=== PATIENT | female | born 1945 | race Caucasian/White ===

== ENCOUNTER 2019-11-28 04:15 | Inpatient (IN) ==
--- NOTE | 2019-11-28 04:33 | ERNOTE ---
Lower Extremity HPI - General Lower Extremities Pain: hip: right - Fracture Time Seen by Provider: 11/28/19 04:21 Source: patient, old records Exam Limitations: no limitations - Immun/Allergies/Home Medications Immunizations: IMMUNIZATION HX Immunizations Up to Date Yes Allergies/Adverse Reactions: Allergies Allergy/AdvReac Type Severity Reaction Status Date / Time Sulfa (Sulfonamide Allergy Verified 11/28/19 04:21 Antibiotics) Home Medications: HOME MEDICATIONS Furosemide [Lasix] 40 mg PO BID 11/28/19 [Last Taken Unknown] Glipizide Xl 1 tab PO DAILY 11/28/19 [Last Taken Unknown] Potassium Chloride [Klor-Con] 20 meq PO DAILY 11/28/19 [Last Taken Unknown] metFORMIN HCL 1 tab PO DAILY 11/28/19 [Last Taken Unknown] - History of Present Illness Narrative: Patient transferred here from [facility] accepted by Dr. Peters due to right intertrochanteric hip fracture. Patient is comfortable at this time she states it only really hurts when she is moved. Patient was given IV Toradol at [facility] just prior to discharge. Occurred: this evening Location of Incident: home Method of Injury: Reports: fell Reason for Fall: Reports: tripped Loss of Consciousness: Reports: no loss of consciousness Modifying Factors - (Improves): Reports: immobilization Modifying Factors - (Worsens): Reports: movement Associated Symptoms: Reports: unable to bear weight Other Injuries: Reports: none Review of Systems - Review of Systems Constitutional: Absent: recent illness, fever, chills Respiratory: Absent: shortness of breath, cough Cardiology: Absent: chest pain, palpitations Gastrointestinal/Abdominal: Absent: nausea, vomiting Genitourinary: Absent: frequency, dysuria Musculoskeletal: Present: See HPI Skin: Absent: rash, change in color Neurological: Absent: headache, dizziness/light-headedness Endocrine: Absent: excessive sweating, flushing Hematologic/Lymphatic: Absent: easy bruising, easy bleeding Psych: Absent: anxiety, depressed Medical History (Last Reviewed 11/28/19 @ 06:10 by Denver Frias DO) Diabetes Edema of both legs History of irregular heartbeat Surgical History: Surgical History (Last Reviewed 11/28/19 @ 06:10 by Denver Frias DO) History of bilateral knee replacement Social History: (Last Reviewed 11/28/19 @ 06:10 by MONICA Schwartz Tobacco: Smoking Status: Never smoker Alcohol: alcohol intake: former Substance Use: substance use type: does not use Physical Exam - Physical Exam General Appearance: Present: wd/wn, alert, no apparent distress Head Exam: Present: normal inspection, no evidence of injury Ears, Nose, Throat: Present: normal ENT inspection Neck: Present: normal inspection, nontender, supple Respiratory: Present: no respiratory distress, no accessory muscle use, lungs clear Cardiovascular/Chest: Present: no murmur, irregularly irregular Peripheral Pulses: N=norm/S=strong/W=weak/B=bound/A=absent: Dorsalis-pedis (R): Normal, Dorsalis-pedis (L): Normal Gastrointestinal/Abdominal: Present: normal bowel sounds, nontender, nondistended, soft Extremity Exam: Present: normal except - - Tenderness right hip., extremity edema - +1 bilaterally Neurological Exam: Present: alert, oriented - In general but does get a little confused on details concerning her medication and and other recent medical treatment., normal mood/affect Skin Exam: Present: normal color, warm/dry Lymphatic Exam: Present: no adenopathy Progress - Results and Orders Patient's Lab Results:: I have reviewed the patient's lab results. Results and Orders: Laboratory Tests 11/28/19 11/28/19 04:35 04:35 WBC 16.3 H Hgb 13.1 Hct 36.7 L Plt Count 200 Neutrophils % 84.2 H Sodium 122 L Potassium 2.2 L* Chloride 84 L BUN 42 H Creatinine 1.52 H Random Glucose 170 H - Vital Signs Patient's Vital Signs:: I have reviewed the patient's vital signs. Vital Signs: Vital Signs 11/28/19 04:17 Temperature 36.4 C Pulse Rate 68 Respiratory Rate 17 Blood Pressure 121/64 O2 Sat by Pulse Oximetry 99 - EKG EKG #1 EKG: atrial fibrillation, RBBB EKG read: Interp. by me - X-Ray X-Ray #1 X-Ray: hip Interpretation: Reviewed by me X-ray Comments: I reviewed hip x-rays from [facility]. X-ray showed acute comminuted and displaced right intertrochanteric fracture with shortening. - Progress/Reassessment Chief Complaint: Hip Pain/Injury Progress:: Improved Progress Note-Subjective: 11/28/19 05:[address] Peters about the lab abnormalities and he requested the patient be admitted to medicine and consult him. 11/28/19 06:[address] Ashraf, she agreed with admit and we agreed with normal saline with potassium IV to begin to straighten out her electrolyte abnormalities. Departure Clinical Impression: Hyponatremia, Hypokalemia Intertrochanteric fracture of right hip Qualifiers: Encounter type: initial encounter Fracture type: closed Fracture alignment: displaced Qualified Code(s): S72.141A - Displaced intertrochanteric fracture of right femur, initial encounter for closed fracture - Departure Disposition: Still a patient Condition: Good
[2019-11-28 04:37] LABS: Hematocrit 36.7 % (37.0-47.0); Hemoglobin 13.1 gm/dL (12.5-16.0); Mean Corpuscular Hemoglobin 30.3 pg (27-31); Mean Corpuscular Hgb Conc 35.7 g/dl (32-36); Mean Platelet Volume 9.4 fl (8-12.5); Neutrophil # 13.8 K/mm3 (1.3-6.0); Neutrophil % 84.2 % (42-75.0); Platelet Count 200 K/mm3 (150-450); Red Blood Count 4.32 M/mm3 (4.2-5.4); Red Cell Distribution Width 12.7 % (11.5-14.0); White Blood Count 16.3 K/mm3 (4.0-10.5)
[2019-11-28 04:45] LABS: Anion Gap 7.8 mmol/L (6.8-13.8); BUN/Creatinine Ratio 27.6 (9.0-21.6); Calcium * 9.1 mg/dL (7.9-10.9); Carbon Dioxide 32.4 mmol/L (24-32.6); Estimated Creat Clear 32.9
[2019-11-28 04:54] LABS: Potassium 2.2 mmol/L (3.4-4.6)
[2019-11-28] MEDS ORDERED: POTASSIUM CHLORIDE 40 MEQ in NORMAL SALINE 1,000 ML IV SCH (05:15)
[2019-11-28] MEDS ORDERED: ONDANSETRON HCL/PF 2 MG/ML VIAL IV PRN (10:02)
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
[2019-11-28] MEDS: POTASSIUM CHLORIDE 40 MEQ in NORMAL SALINE 1,000 ML IV SCH ×2 (10:48→20:55)
[2019-11-28] MEDS: FUROSEMIDE 40 MG TABLET PO SCH ×2 (10:51→20:54)
--- NOTE | 2019-11-28 11:36 | CONS ---
- Reason for consultation (1) Intertrochanteric fracture of right hip Date of Service: 11/28/19 HPI - General Date of Service: 11/28/19 Narrative: 74-year-old female with right hip intertrochanteric femur fracture. Patient fell last night was brought to the ER found to have this fracture. She notes her pain is minimal at rest worse with movement. She rates it a 4/10 with significant movement. However while resting she notes she has no significant pain. She reports no other acute events. She does wish to have her brother Bill notified of proceedings. Source: patient - History of Present Illness Allergies/Adverse Reactions: Allergies Sulfa (Sulfonamide Antibiotics) Allergy (Verified 11/28/19 10:02) Home Medications: Home Medications Medication Instructions Recorded Last Taken Furosemide [Lasix] 40 mg PO BID 11/28/19 Unknown Glipizide Xl 1 tab PO DAILY 11/28/19 Unknown Potassium Chloride [Klor-Con] 20 meq PO DAILY 11/28/19 Unknown metFORMIN HCL [Glucophage Xr] 750 mg PO DAILY 11/28/19 Unknown Medications - Medications Current Medications: Current Medications Furosemide (Lasix) 40 mg PO BID [facility] Stop: 12/28/19 10:16 Last Admin: 11/28/19 10:51 Dose: 40 mg Documented by: Potassium Chloride 40 meq/ (Sodium Chloride) 1,020 mls @ 250 mls/hr IV .[id number] [facility] Stop: 12/28/19 05:16 Last Infusion: 11/28/19 09:52 Dose: Infused Documented by: Potassium Chloride 40 meq/ (Sodium Chloride) 1,020 mls @ 100 mls/hr IV .[id number] [facility] Stop: 12/28/19 10:01 Last Admin: 11/28/19 10:48 Dose: 100 mls/hr Documented by: Physical Examination - Exam Vital Signs: Vital Signs - Last Taken Temp 37.5 C 11/28/19 11:18 Pulse 67 11/28/19 11:18 Resp 12 11/28/19 11:18 BP 115/63 11/28/19 11:18 Pulse Ox 99 11/28/19 11:18 O2 Oxygen Delivery Method Room Air Constitutional: Present: Alert, Cooperative, No distress Respiratory: Present: no respiratory distress Extremity: Present: other - RLE--> sensation intact light touch, distal capillary refill brisk, 5/5 plantarflexion/dorsiflexion ankle, diffuse t enderness about right hip, no obvious wounds or deformity Appearance: Present: appropriate appearance Eye contact: Present: cooperative Thoughts: Present: normal thought pattern - Results and Findings: Lab/Microbiology results last 24 hrs: Abnormal/Pending Laboratory Last 24 HRS 11/28/19 11/28/19 04:35 04:35 WBC 16.3 H Hct 36.7 L Immature Gran % (Auto) 0.60 H Immature Gran # (Auto) 0.09 H Neutrophils % 84.2 H Lymphocytes % 8.5 L Neutrophils # 13.8 H Lymphocytes # 1.39 L Sodium 122 L Plasma Sodium 123 L Potassium 2.2 L* Chloride 84 L BUN 42 H Creatinine 1.52 H Est GFR (Non-Af Amer) 35 L BUN/Creatinine Ratio 27.6 H Random Glucose 170 H - Assessments/Findings (1) Intertrochanteric fracture of right hip Problem: Acute Qualifiers: Encounter type: initial encounter Fracture type: closed Fracture alignment: displaced Qualified Code(s): S72.141A - Displaced intertrochanteric fracture of right femur, initial encounter for closed fracture Plan - Plan Plan: -74 y/o female presented to the ER after a fall with a right intertrochanteric femur fracture. Discussed with patient conservative or surgical intervention today as well as with patient's POA answered all her questions discussed risk versus benefits including but not limited to infection, bleeding, malunion versus nonunion fracture healing, implant failure, continued pain, cardiac and stroke risk, inherent risk of surgery. Patient agreed to proceed with surgical intervention. Due to patient's electrolyte imbalances and discussion with medicine will continue to stabilize patient prior to surgical intervention most likely on 11/29/2019. Consent was obtained and all questions were answered without complication. We will continue with management per medicine team for chronic conditions.
[2019-11-28] MEDS: DILTIAZEM HCL 60 MG TABLET PO SCH ×2 (12:36→18:30)
[2019-11-28] MEDS ORDERED: glipiZIDE 5 MG TAB.SR.24H PO SCH (14:00)
[2019-11-28] MEDS: BETHANECHOL 5 MG PO SCH ×2 (14:12→18:31)
[2019-11-28] MEDS: metFORMIN HCL 750 MG TAB.SR.24H PO SCH (15:02)
[2019-11-28] MEDS: glipiZIDE 5 MG TABLET PO SCH (15:02)
[2019-11-28 17:18] LABS: Albumin * 3.2 gm/dl (3.4-5.0); Anion Gap 7.2 mmol/L (6.8-13.8); BUN/Creatinine Ratio 27.6 (9.0-21.6); Bilirubin, Total 2.8 mg/dL (0.0-1.1); Ca. Corrected For Albumin 8.9 mg/dL (8.4-10.2); Calcium * 8.6 mg/dL (7.9-10.9); Carbon Dioxide 33.5 mmol/L (24-32.6); Potassium 2.7 mmol/L (3.4-4.6); Total Protein 6.3 gm/dL (6.2-8.2)
[2019-11-28] MEDS ORDERED: POTASSIUM CHLORIDE 20 MEQ TABLET.SA PO ONE (18:01)
[2019-11-28] MEDS: PANTOPRAZOLE SODIUM 40 MG TABLET.EC PO SCH (20:54)
[2019-11-29] MEDS: ACETAMINOPHEN 500 MG TABLET PO PRN ×2 (00:42→21:31)
[2019-11-29] MEDS: DILTIAZEM HCL 60 MG TABLET PO SCH ×4 (00:42→17:13)
[2019-11-29] MEDS ORDERED: RINGER'S SOLUTION,LACTATED 1,000 ML IV PRN ×2 (06:00→11:29)
[2019-11-29] MEDS ORDERED: ceFAZolin SODIUM 1 GM VIAL IV PRN (06:00)
[2019-11-29 06:35] LABS: BUN/Creatinine Ratio 24.6 (9.0-21.6); Potassium 3.4 mmol/L (3.4-4.6)
[2019-11-29 06:36] LABS: Albumin * 3.1 gm/dl (3.4-5.0); Bilirubin, Total 2.3 mg/dL (0.0-1.1); Ca. Corrected For Albumin 9.1 mg/dL (8.4-10.2); Calcium * 8.7 mg/dL (7.9-10.9); Total Protein 6.2 gm/dL (6.2-8.2)
[2019-11-29 06:41] LABS: Anion Gap 8.7 mmol/L (6.8-13.8); Carbon Dioxide 30.7 mmol/L (24-32.6)
[2019-11-29] MEDS: POTASSIUM CHLORIDE 40 MEQ in NORMAL SALINE 1,000 ML IV SCH (06:54)
--- NOTE | 2019-11-29 07:12 | ANES ---
Anesthesia Pre Procedure Eval Vitals/Labs: Last Vital Signs Temp 36.8 C 11/29/19 02:00 Pulse 70 11/29/19 05:18 Resp 18 11/29/19 02:00 BP 120/62 11/29/19 05:18 Pulse Ox 97 11/29/19 02:00 HOME MEDICATIONS chlorthalidone 25 mg tablet 12.5 mg PO DAILY #15 tab 10/31/19 [Last Taken Unknown] Bethanechol Chloride 5 mg PO TID 11/28/19 [Last Taken Unknown] Chlorthalidone [Hygroton] 12.5 mg PO DAILY 11/28/19 [Last Taken Unknown] Diltiazem HCl [Cardizem] 60 mg PO Q6H 11/28/19 [Last Taken Unknown] Ergocalciferol (Vitamin D2) [Vitamin D2] 50,000 unit PO MOWEFR 11/28/19 [Last Taken Unknown] Folic Acid 1 mg PO DAILY 11/28/19 [Last Taken Unknown] Furosemide [Lasix] 20 mg PO DAILY 11/28/19 [Last Taken Unknown] Furosemide [Lasix] 40 mg PO BID 11/28/19 [Last Taken Unknown] Lisinopril/Hydrochlorothiazide [Lisinopril-Hctz 20-25 mg Tab] 1 ea PO DAILY 11/28/19 [Last Taken Unknown] Meloxicam [Mobic] 15 mg PO DAILY 11/28/19 [Last Taken Unknown] Metoprolol Succinate [Toprol Xl] 50 mg PO DAILY 11/28/19 [Last Taken Unknown] Potassium Chloride [Klor-Con] 20 meq PO DAILY 11/28/19 [Last Taken Unknown] Rosuvastatin Calcium 10 mg PO DAILY 11/28/19 [Last Taken Unknown] glipiZIDE [Glipizide] 5 mg PO DAILY 11/28/19 [Last Taken Unknown] metFORMIN HCL [Glucophage Xr] 750 mg PO DAILY 11/28/19 [Last Taken Unknown] Allergies/Adverse Reactions: Allergies Allergy/AdvReac Type Severity Reaction Status Date / Time Sulfa (Sulfonamide Allergy Verified 11/28/19 12:46 Antibiotics) - Planned Procedure Planned Procedure: R HIP FX, HYPONATREMIA,HYPOKALEMIA Medication List Reviewed:: Yes Allergies Verified: Yes Medical History (This Medical Record has been edited. Action required.) CHF (congestive heart failure) Diabetes Edema of both legs History of irregular heartbeat Hypertension Surgical History (This Medical Record has been edited. Action required.) History of bilateral knee replacement Family History (This Medical Record has been edited. Action required.) Mother A-fib Father Leukemia Emphysema lung Lung cancer - Family Anesthesia History Family History:: no untoward family reactions to anesthesia, no familial bleeding tendencies, no family history of clotting disorders, no family history of premature - Airway/Neck/Teeth Denture Type: Full upper Neck Exam: full range of motion Mallampatti Score: 2 Thyromental (T-M) distance: > 6 cm Mandibulo Hyoid distance: > 3 cm - Respiratory Respiratory Physical: wheezing - inspiratory Smoking Status: Never smoker Sleep Apnea currently treated: No Sleep Apnea by current assessment: No - Cardiovascular Cardiac History: arrhythmia, CHF, hypertension Tolerate Activity: Fair Heart Sounds: S1 & S2, Regular - Gastrointestinal NPO since: 2400 - Anesthesia Assessment and Plan ASA Class: PS, III Anesthesia Type Plan: Spinal
[2019-11-29] MEDS ORDERED: ceFAZolin SODIUM 1 GM VIAL ONE (08:09)
[2019-11-29] MEDS: METOPROLOL SUCCINATE 50 MG TABLET.SA PO SCH (09:37)
--- NOTE | 2019-11-29 10:00 | PN ---
Subjective - Date and Time Seen Date: 11/29/19 Time: 09:53 Subjective Narrative: I feel comfortable for now Objective Objective Narrative: 74-year-old female admitted for a right intertrochanteric femoral neck fracture that resulted from a fall that occurred in the community several days ago was evaluated at bedside and was found to be afebrile and in no acute distress. Patient had not been medically cleared previously due to significant electrolyte imbalance specifically hypokalemia and hyponatremia. Disorder her electrolytes are most likely secondary to daily oral diuretics the patient takes to treat chronic and recurrent edema in her lower extremities. However after treating the patient with sodium and potassium replacements, this morning labs demonstrate resolution of the hypokalemia and hyponatremia. The patient maintained stable vitals and has had no fever while in our care. Her hemoglobin levels are adequate, therefore I am clearing her for surgery to repair her hip fracture. - Review of Systems Generalized/Overall Review: Reports: No Symptoms Reported EENTM: Reports: No Symptoms Reported Respiratory: Reports: No Symptoms Reported Cardiac: Reports: No Symptoms Reported Abdominal: Reports: No Symptoms Reported Genitourinary Symptoms: Reports: No Symptoms Reported Musculoskeletal Complaints: Reports: Joint Pain - Right hip pain Neurological: Reports: No Symptoms Reported Skin: Reports: No Symptoms Reported Endocrine: Reports: No Symptoms Reported - Vitals Vitals: Last Vital Signs Temp 37.0 C 11/29/19 07:27 Pulse 60 11/29/19 09:37 Resp 20 11/29/19 07:27 BP 124/65 11/29/19 09:37 Pulse Ox 97 11/29/19 07:27 - Abnormal Lab Findings Abnormal Lab Findings: Abnormal Lab Results 11/28/19 11/29/19 Range/Units 15:40 06:10 Sodium 127 L 130 L (132-142) mmol/L Plasma Sodium 129 L (130-142) mmol/L Potassium 2.7 L D (3.4-4.6) mmol/L Chloride 89 L 94 L (97-106) mmol/L Carbon Dioxide 33.5 H (24-32.6) mmol/L BUN 35 H 29 H (3-23) mg/dL Est GFR (Non-Af Amer) 43 L D 47 L (60-130) mL/min BUN/Creatinine Ratio 27.6 H 24.6 H (9.0-21.6) Random Glucose 239 H D (70-110) mg/dL Total Bilirubin 2.8 H 2.3 H (0.0-1.1) mg/dL ALT 17 L 14 L (19-67) U/L Albumin 3.2 L 3.1 L (3.4-5.0) gm/dl - Exam Constitutional: Present: Alert, Oriented x3, Cooperative, Well developed, Well nourished, No distress, Elderly ENT Exam: Present: normal ENT inspection, hard of hearing Neck: Present: non-tender, full range of motion, supple, normal inspection, trachea midline Breasts: Present: Exam deferred Respiratory: Present: chest non-tender, lungs clear, normal breath sounds, no respiratory distress, no accessory muscle use Cardiovascular/Chest: Present: normal peripheral pulses, regular rate, rhythm, no chest tenderness, no gallop, no JVD, no murmur, no rub Abdomen: Present: Normal bowel sounds, soft, nontender, nondistended, no rebound tenderness, no hepatospenomegaly, no masses /Rectal: Present: Exam deferred Extremity: Present: no calf tenderness, lower extremity edema, leg pain, other - Externally rotated and shortened right lower extremity Skin Exam: Present: normal color, warm/dry, no cyanosis Lymphatic: Present: no adenopathy Neurologic: Present: 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 - Problems/Diagnosis (1) Fall down embankment Problem: Acute (2) Intertrochanteric fracture of right hip Problem: Acute Qualifiers: Encounter type: initial encounter Fracture type: closed Fracture alignment: displaced Qualified Code(s): S72.141A - Displaced intertrochanteric fracture of right femur, initial encounter for closed fracture (3) Hyponatremia Problem: Resolved (4) Hypokalemia Problem: Resolved (5) Diabetes 1.5, managed as type 2 Problem: Chronic (6) HTN (hypertension) Problem: Chronic
[2019-11-29] MEDS ORDERED: fentaNYL CITRATE/PF 50 MCG/ML AMPUL ONE (10:27)
[2019-11-29] MEDS ORDERED: ONDANSETRON HCL/PF 2 MG/ML VIAL ONE (10:27)
[2019-11-29] MEDS ORDERED: LIDOCAINE HCL 20 ML VIAL ONE (10:27)
[2019-11-29] MEDS ORDERED: PROPOFOL VIAL IV ONE (10:28)
[2019-11-29] MEDS ORDERED: MAG HYDROX/ALUMINUM HYD/SIMETH 30 ML UDC PO PRN (11:36)
[2019-11-29] MEDS ORDERED: MAGNESIUM HYDROXIDE 30 ML UDC PO PRN (11:36)
--- NOTE | 2019-11-29 11:36 | OR ---
Operative Report - Dictated Report Narrative: Date: 11/29/2019 Surgeon: Gordy Lincoln M.D. Management Assistant: Jose Frank PA-C (provided an essential set of skilled educated handset assisted with transfer, positioning, prepping, draping, placement of instruments, insertion of implants, irrigation, closure wounds, and placement of dressings all which could not be performed by the available surgical crew) Preoperative diagnosis: Right displaced intertrochanteric femur fracture Postoperative diagnosis: Right closed displaced intertrochanteric femur fracture Operations and procedures: 1. Closed reduction, cephalo-medullary fixation right intertrochanteric femur fracture 2. Intraoperative interpretation of radiographs Anesthesia: Spinal Specimens: None Estimated blood loss: 75 milliliters Retained implants: [employer] Trigen InterTAN 130 degree size 11.5 mm by 20 centimeter nail with 100 millimeter lag screw and 95 millimeter compression screw, with distal locking screw Complications: None Indications for procedure: Mrs. Rowe is a 74-year-old female who injured the right leg after ground-level fall. They were admitted to the hospital after being evaluated in the emergency department. Once the medical provider felt that they were stable for surgical treatment, the risks and benefits alternatives were discussed. The risks of , blood clots, bleeding, infection, nerve/tendon/blood vessel injury, malunion, nonunion, failure of implants, painful implants, arthrosis, and need for additional procedures were discussed. The extremity was marked and consent was obtained on the floor. Procedure: After marking the operative extremity on the floor, the patient was taken to the operating room. A timeout was performed. IV antibiotics consisting of Ancef were administered. A spinal anesthetic was induced by anesthesia, and the patient was then placed onto a fracture table with a well-padded perineal post. The nonoperative leg was placed in a well-padded traction boot in slight extension without any traction with an SCD on the leg. The operative leg was placed in a well-padded traction boot. Longitudinal traction, internal rotation, and flexion were utilized in order to reduce the fracture. Preliminary images were attained utilizing C-arm in both the AP and lateral views. This confirmed that we had obtained adequate visualization of the fracture as well as reduction. Next the hip was then prepped and draped in a standard sterile fashion. Next the guidewire was placed percutaneously proximal to the greater trochanter to duglas a starting point at the tip of the greater trochanter centered on the lateral view. This was passed down to the level below the lesser trochanter. A scalpel was utilized in order to dissect down to the greater trochanter in order to place the soft tissue protector down to bone. The entry drill was then placed down the proximal femur to the level of the lesser trochanter. The proper size nail was then selected and impacted into place. The outrigger was utilized in order to confirm the appropriate depth of the nail. Using the alignment device on the outrigger, an incision was made over the lateral femur. Sharp dissection was carried through the iliotibial band down to the proximal femur. The guidewire was placed into the femoral head in a center- center position on AP and lateral views. The tip-apex distance of less than 25 mm combined was obtained. Once we felt that we had placed a guidewire in the appropriate position, it was measured. Next the compression screw site was drilled through the lateral femoral cortex. This was then drilled down to the appropriate depth, again confirming that we are within the confines the bone. The derotational bar was then placed and the lag screw was drilled. The lag screw was then secured in place seating fully ensuring that we were within the confines of the bone. The compression screw was then inserted allowing for compression while releasing the traction on the leg. Using C-arm this was visualized to allow for compression across the fracture site. Once is felt that we had adequately stabilized the intertrochanteric fracture, the distal interlocking screw was placed in a dynamic position. It was confirmed to be the appropriate length and within the nail on both AP and lateral views. The nail was secured allowing for controlled compression and the outrigger was removed. The wounds were then thoroughly irrigated. Final images were obtained. The hip was placed through range of motion and showed no crepitance. The deep fascia was closed with 0 Vicryl, the subcutaneous tissue with 3-0 Vicryl, and the skin was closed with feng. Sterile dressings of Xeroform, 4 x 4, and tape were applied. All sponge, sharp, and instrument counts were correct prior to closing the wounds. The patient was then awoken and transferred to the postanesthesia care unit in stable condition.
[2019-11-29 11:54] LABS: Prothrombin Time (Patient) 10.7 Seconds (9.1-10.7)
[2019-11-29 11:56] LABS: INR 1.08 INR (0.92-1.08)
--- NOTE | 2019-11-29 11:58 | ANES ---
Post Anesthesia Assessment - Vital Signs Vitals: Last Vital Signs Temp 36.0 C 11/29/19 11:45 Pulse 66 11/29/19 11:55 Resp 20 11/29/19 11:55 BP 107/57 11/29/19 11:55 Pulse Ox 99 11/29/19 11:55 Airway Patency: Normal - Mental Status Level Of Consciousness: Drowsy - Pain Level Pain Score: 0 - N/V Assessment Nausea/Vomiting Presence: None Dehydration:: No
--- NOTE | 2019-11-29 11:58 | ANES ---
Post Anesthesia Discharge - Transfer of Care Transfer of Care handoff given to nurse: Yes - Discharge from PACU Discharge from PACU when meets criteria: Yes - Discharge to [facility] Discharge to [facility]-no complications/pt stable: Yes
[2019-11-29] MEDS: CHLORTHALIDONE 25 MG TABLET PO SCH (12:27)
[2019-11-29] MEDS: metFORMIN HCL 750 MG TAB.SR.24H PO SCH (12:27)
[2019-11-29] MEDS: ERGOCALCIFEROL 50000 UNIT TABLET PO SCH (12:28)
[2019-11-29] MEDS: glipiZIDE 5 MG TABLET PO SCH (12:28)
[2019-11-29] MEDS: FOLIC ACID 1 MG TABLET PO SCH (12:28)
[2019-11-29] MEDS: FUROSEMIDE 40 MG TABLET PO SCH ×2 (12:28→21:32)
[2019-11-29] MEDS: ROSUVASTATIN CALCIUM 10 MG TABLET PO SCH (12:28)
[2019-11-29] MEDS: PANTOPRAZOLE SODIUM 40 MG TABLET.EC PO SCH ×2 (12:28→21:32)
[2019-11-29] MEDS: BETHANECHOL 5 MG PO SCH ×3 (12:29→17:13)
[2019-11-29] MEDS: POTASSIUM CHLORIDE 20 MEQ TABLET.SA PO SCH (12:29)
[2019-11-29] MEDS ORDERED: NORMAL SALINE 1,000 ML IV ONE (14:45)
[2019-11-29] MEDS: ceFAZolin SODIUM 1 GM in DEXTROSE 5 % IN WATER 100 ML IV SCH ×4 (14:48→19:04)
[2019-11-29] MEDS: WARFARIN SODIUM 5 MG TABLET PO SCH (17:13)
[2019-11-29] MEDS: SENNOSIDES/DOCUSATE SODIUM 1 TAB TABLET PO SCH (21:31)
[2019-11-30] MEDS: DILTIAZEM HCL 60 MG TABLET PO SCH ×5 (00:08→23:58)
[2019-11-30] MEDS: ceFAZolin SODIUM 1 GM in DEXTROSE 5 % IN WATER 100 ML IV SCH ×2 (00:37)
[2019-11-30 07:01] LABS: Hematocrit 31.8 % (37.0-47.0); Hemoglobin 11.1 gm/dL (12.5-16.0); Mean Cell Volume 86.9 fl (78-100); Mean Corpuscular Hemoglobin 30.3 pg (27-31); Mean Corpuscular Hgb Conc 34.9 g/dl (32-36); Mean Platelet Volume 9.7 fl (8-12.5); Platelet Count 173 K/mm3 (150-450); Red Blood Count 3.66 M/mm3 (4.2-5.4); Red Cell Distribution Width 12.9 % (11.5-14.0); White Blood Count 13.6 K/mm3 (4.0-10.5)
[2019-11-30] MEDS: PANTOPRAZOLE SODIUM 40 MG TABLET.EC PO SCH ×2 (07:02→20:17)
[2019-11-30 07:04] LABS: Anion Gap 11.5 mmol/L (6.8-13.8); BUN/Creatinine Ratio 17.9 (9.0-21.6); Calcium * 8.8 mg/dL (7.9-10.9); Carbon Dioxide 32.3 mmol/L (24-32.6); Estimated Creat Clear 46.2
[2019-11-30 07:06] LABS: Potassium 2.8 mmol/L (3.4-4.6)
[2019-11-30] MEDS: metFORMIN HCL 750 MG TAB.SR.24H PO SCH (08:56)
[2019-11-30] MEDS: CHLORTHALIDONE 25 MG TABLET PO SCH (08:57)
[2019-11-30] MEDS: POTASSIUM CHLORIDE 20 MEQ TABLET.SA PO SCH (08:58)
[2019-11-30] MEDS: glipiZIDE 5 MG TABLET PO SCH (08:58)
[2019-11-30] MEDS: ROSUVASTATIN CALCIUM 10 MG TABLET PO SCH (09:06)
[2019-11-30] MEDS: BETHANECHOL 5 MG PO SCH ×3 (09:06→16:37)
[2019-11-30] MEDS: FOLIC ACID 1 MG TABLET PO SCH (09:07)
[2019-11-30] MEDS: FUROSEMIDE 40 MG TABLET PO SCH ×2 (09:08→20:17)
[2019-11-30] MEDS: METOPROLOL SUCCINATE 50 MG TABLET.SA PO SCH (09:09)
--- NOTE | 2019-11-30 10:26 | PN ---
Subjective - Date and Time Seen Date: 11/30/19 Time: 10:24 Subjective Narrative: Subjective: Reports mild pain with difficulty walking. Was able to get to the chair with therapy. Pain is well-controlled. Voiding without any complications. Tolerating by mouth intake. Denies any nausea or vomiting. Denies calf pain. Slept well. Physical exam: Alert and oriented to person, place and time Right lower extremity: Palpable dorsalis pedis pulse. Sensation grossly intact to light touch. Dressings clean dry and intact. Able to flex and extend ankle and toes. No excessive drainage. Calf and thigh are soft and nontender. Assessment: Postop day 1 status post right hip cephalo-medullary fixation of intertrochanteric femur fracture. Plan: Continue with physical and occupational therapy weightbearing as tolerated. Continue with anticoagulation-she will need 6 weeks of DVT prophylaxis. 24 hours postoperative prophylactic antibiotics. Pain control with goal to rely on oral medications. Continue bowel regimen. Will need 6 weeks with walker or assitive device to protect joint while ambulating during the recovery process. Discharge planning -okay for nursing facility when medically sound. Discontinue Bolanos catheter. Objective - Vitals Vitals: Last Vital Signs Temp 37.3 C 11/30/19 10:00 Pulse 73 11/30/19 10:00 Resp 16 11/30/19 10:00 BP 120/61 11/30/19 10:00 Pulse Ox 98 11/30/19 10:00 - Abnormal Lab Findings Abnormal Lab Findings: Abnormal Lab Results 11/30/19 11/30/19 Range/Units 06:41 06:41 WBC 13.6 H (4.0-10.5) K/mm3 RBC 3.66 L (4.2-5.4) M/mm3 Hgb 11.1 L (12.5-16.0) gm/dL Hct 31.8 L (37.0-47.0) % Sodium 126 L (132-142) mmol/L Plasma Sodium 128 L (130-142) mmol/L Potassium 2.8 L (3.4-4.6) mmol/L Chloride 85 L (97-106) mmol/L Est GFR (Non-Af Amer) 50 L (60-130) mL/min Random Glucose 242 H D (70-110) mg/dL Cauti Physician Documentation - Urinary Catheter Management Urethral (Bolanos) Date of Insertion: 11/28/19 Time of Insertion: 00:15 Date of Removal: 11/30/19 Time of Removal: 08:50 Assessment/Plan - Problems/Diagnosis (1) Intertrochanteric fracture of right hip Problem: Acute Qualifiers: Encounter type: subsequent encounter Fracture type: closed Fracture alignment: displaced Fracture healing: with routine healing Qualified Code(s): S72.141D - Displaced intertrochanteric fracture of right femur, subsequent encounter for closed fracture with routine healing
[2019-11-30] MEDS: ENOXAPARIN SODIUM 40 MG/0.4 ML SYRG SC SCH (10:41)
[2019-11-30 11:30] LABS: Prothrombin Time (Patient) 11.3 Seconds (9.1-10.7)
[2019-11-30 11:36] LABS: INR 1.15 INR (0.92-1.08)
[2019-11-30] MEDS ORDERED: POTASSIUM CHLORIDE 40 MEQ/15 ML LIQUID PO ONE (13:29)
--- NOTE | 2019-11-30 13:30 | PN ---
Subjective - Date and Time Seen Date: 11/30/19 Time: 13:30 Subjective Narrative: Patient currently resting in bed, alert and oriented x3. Pleasant speak with, denies any pain in her right hip along she does not move her leg. Vital signs are stable and she is been afebrile. Hemoglobin dropped from 13.1 down to 11.1 following surgery, postop anemia but vital signs are stable. Objective - Review of Systems Generalized/Overall Review: Denies: Chills, Fever EENTM: Reports: No Symptoms Reported Respiratory: Denies: Cough, Shortness of Breath Cardiac: Denies: Chest Pain, Edema Abdominal: Denies: Nausea Genitourinary Symptoms: Reports: No Symptoms Reported Musculoskeletal Complaints: Reports: Joint Pain Neurological: Reports: No Symptoms Reported Endocrine: Reports: No Symptoms Reported - Vitals Vitals: Last Vital Signs Temp 37.3 C 11/30/19 10:00 Pulse 91 11/30/19 12:19 Resp 16 11/30/19 10:00 BP 130/65 11/30/19 12:19 Pulse Ox 98 11/30/19 10:00 - Abnormal Lab Findings Abnormal Lab Findings: Abnormal Lab Results 11/30/19 11/30/19 11/30/19 Range/Units 06:41 06:41 06:41 WBC 13.6 H (4.0-10.5) K/mm3 RBC 3.66 L (4.2-5.4) M/mm3 Hgb 11.1 L (12.5-16.0) gm/dL Hct 31.8 L (37.0-47.0) % PT 11.3 H (9.1-10.7) Seconds INR (Anticoag Therapy) 1.15 H (0.92-1.08) INR Sodium 126 L (132-142) mmol/L Plasma Sodium 128 L (130-142) mmol/L Potassium 2.8 L (3.4-4.6) mmol/L Chloride 85 L (97-106) mmol/L Est GFR (Non-Af Amer) 50 L (60-130) mL/min Random Glucose 242 H D (70-110) mg/dL - Exam Constitutional: Present: Alert, Elderly. Absent: Oriented x3 - X2 Respiratory: Present: lungs clear, normal breath sounds Cardiovascular/Chest: Present: irregularly irregular. Absent: no murmur Abdomen: Present: soft, nontender Extremity: Present: lower extremity edema - Trace right side, leg pain - Right lower extremity Appearance: Present: impaired insight Eye contact: Present: cooperative, normal speech Thoughts: Present: no apparent hallucination Cauti Physician Documentation - Urinary Catheter Management Urethral (Bolanos) Date of Insertion: 11/28/19 Time of Insertion: 00:15 Date of Removal: 11/30/19 Time of Removal: 08:50 Assessment/Plan Plan Narrative: Postop day 1 status post right femur fracture. Pain appears well controlled. Continue weightbearing status. Continue physical therapy. Patient slightly confused this morning. Alert and oriented x2. Patient currently denies any pain and is tolerating therapy as directed. No acute events overnight. Patient did have low sodium at 126 and the potassium at 2.8. Blood pressure well controlled vital signs been stable Hyponatremia, currently fluid restricting patient in 2000 cc of free fluid per day. Repeat BMP in the morning Hypokalemia, currently being replenished. Repeat BMP in the morning Warfarin for DVT prevention. Continue with INR checks. Nurse to call questions or concerns. - Problems/Diagnosis (1) Intertrochanteric fracture of right hip Problem: Acute Qualifiers: Encounter type: subsequent encounter Fracture type: closed Fracture alignment: displaced Fracture healing: with routine healing Qualified Code(s): S72.141D - Displaced intertrochanteric fracture of right femur, subsequent encounter for closed fracture with routine healing (2) Hyponatremia Problem: Resolved (3) Hypokalemia Problem: Resolved (4) HTN (hypertension) Problem: Chronic
[2019-11-30] MEDS: WARFARIN SODIUM 5 MG TABLET PO SCH (16:18)
[2019-11-30] MEDS: SENNOSIDES/DOCUSATE SODIUM 1 TAB TABLET PO SCH (20:18)
[2019-11-30] MEDS: ACETAMINOPHEN 500 MG TABLET PO PRN (22:00)
[2019-12-01] MEDS: DILTIAZEM HCL 60 MG TABLET PO SCH ×3 (05:22→18:01)
[2019-12-01 06:49] LABS: BUN/Creatinine Ratio 16.2 (9.0-21.6); Calcium * 8.9 mg/dL (7.9-10.9); Estimated Creat Clear 49.3
[2019-12-01 06:50] LABS: Prothrombin Time (Patient) 12.7 Seconds (9.1-10.7)
[2019-12-01 06:54] LABS: INR 1.3 INR (0.92-1.08)
[2019-12-01] MEDS: PANTOPRAZOLE SODIUM 40 MG TABLET.EC PO SCH ×2 (07:20→20:18)
[2019-12-01] MEDS: ACETAMINOPHEN 500 MG TABLET PO PRN ×2 (07:24→14:38)
[2019-12-01] MEDS: glipiZIDE 5 MG TABLET PO SCH (09:11)
[2019-12-01] MEDS: FOLIC ACID 1 MG TABLET PO SCH (09:12)
[2019-12-01] MEDS: metFORMIN HCL 750 MG TAB.SR.24H PO SCH (09:12)
[2019-12-01] MEDS: ROSUVASTATIN CALCIUM 10 MG TABLET PO SCH (09:12)
[2019-12-01] MEDS: POTASSIUM CHLORIDE 20 MEQ TABLET.SA PO SCH (09:12)
[2019-12-01] MEDS: FUROSEMIDE 40 MG TABLET PO SCH ×2 (09:13→20:18)
[2019-12-01] MEDS: CHLORTHALIDONE 25 MG TABLET PO SCH (09:13)
[2019-12-01] MEDS: BETHANECHOL 5 MG PO SCH ×3 (09:14→16:35)
[2019-12-01] MEDS: METOPROLOL SUCCINATE 50 MG TABLET.SA PO SCH (09:14)
[2019-12-01] MEDS: ENOXAPARIN SODIUM 40 MG/0.4 ML SYRG SC SCH (11:03)
[2019-12-01] MEDS: WARFARIN SODIUM 5 MG TABLET PO SCH (16:34)
--- NOTE | 2019-12-01 16:43 | PN ---
Subjective - Date and Time Seen Date: 12/01/19 Time: 14:43 Subjective Narrative: Patient's lab work improving the patient still hypokalemic and hyponatremic. She denies any pain at this time. Patient pleasant today. Patient on chlorthalidone which is likely affecting her electrolytes. Objective - Review of Systems Generalized/Overall Review: Denies: Weakness, Chills, Fever EENTM: Reports: No Symptoms Reported Respiratory: Reports: No Symptoms Reported Cardiac: Reports: No Symptoms Reported Abdominal: Reports: No Symptoms Reported Genitourinary Symptoms: Reports: No Symptoms Reported Musculoskeletal Complaints: Reports: Joint Pain Neurological: Reports: No Symptoms Reported Skin: Reports: No Symptoms Reported Endocrine: Reports: No Symptoms Reported - Vitals Vitals: Last Vital Signs Temp 37.1 C 12/01/19 14:00 Pulse 87 12/01/19 14:08 Resp 21 H 12/01/19 14:00 BP 99/58 12/01/19 14:00 Pulse Ox 99 12/01/19 14:00 - Abnormal Lab Findings Abnormal Lab Findings: Abnormal Lab Results 12/01/19 12/01/19 Range/Units 06:30 06:30 PT 12.7 H (9.1-10.7) Seconds INR (Anticoag Therapy) 1.30 H (0.92-1.08) INR Sodium 127 L (132-142) mmol/L Plasma Sodium 128 L (130-142) mmol/L Potassium 3.0 L (3.4-4.6) mmol/L Chloride 89 L (97-106) mmol/L Carbon Dioxide 34.0 H (24-32.6) mmol/L Est GFR (Non-Af Amer) 54 L (60-130) mL/min Random Glucose 157 H D (70-110) mg/dL - Exam Constitutional: Present: Alert, Elderly. Absent: Oriented x3 - X2 ENT Exam: Present: hard of hearing Respiratory: Present: lungs clear, normal breath sounds Cardiovascular/Chest: Present: no murmur, irregularly irregular Extremity: Present: leg pain, swelling - trace RLE Skin Exam: Present: normal color, warm/dry Appearance: Present: impaired insight, impaired recent memory Eye contact: Present: cooperative, good eye contact Thoughts: Present: normal thought pattern, no apparent hallucination Cauti Physician Documentation - Urinary Catheter Management Urethral (Bolanos) Date of Insertion: 11/28/19 Time of Insertion: 00:15 Date of Removal: 11/30/19 Time of Removal: 08:50 Assessment/Plan Plan Narrative: Postop day 2 status post right femur fracture. Pain appears well controlled. Continue weightbearing status. Continue physical therapy. Patient feeling better today compared to yesterday. Alert and oriented x2. Patient currently denies any pain. No acute events overnight. Electrolytes are improving slightly. Potassium not as low today. She did have her chlorthalidone restarted which we will stop as i think this is likely affecting her sodium and potassium significantly. Will start her on ACEI vs ARB in the future if needed. Blood pressure well controlled vital signs been stable Hyponatremia, currently fluid restricting patient in 2000 cc of free fluid per day. Repeat BMP in the morning. Hypokalemia, currently being replenished. Repeat BMP in the morning Warfarin for DVT prevention. Continue with INR checks. Nurse to call questions or concerns. - Problems/Diagnosis (1) Intertrochanteric fracture of right hip Problem: Acute Qualifiers: Encounter type: subsequent encounter Fracture type: closed Fracture alignment: displaced Fracture healing: with routine healing Qualified Code (s): S72.141D - Displaced intertrochanteric fracture of right femur, subsequent encounter for closed fracture with routine healing (2) Hyponatremia Problem: Resolved (3) Hypokalemia Problem: Resolved (4) HTN (hypertension) Problem: Chronic
[2019-12-01] MEDS: SENNOSIDES/DOCUSATE SODIUM 1 TAB TABLET PO SCH (20:18)
[2019-12-02] MEDS: DILTIAZEM HCL 60 MG TABLET PO SCH ×4 (00:02→17:00)
[2019-12-02] MEDS: ACETAMINOPHEN 500 MG TABLET PO PRN (03:18)
[2019-12-02 06:46] LABS: INR 1.65 INR (0.92-1.08)
[2019-12-02 06:47] LABS: BUN/Creatinine Ratio 21.4 (9.0-21.6); Estimated Creat Clear 46.2; Potassium 3.1 mmol/L (3.4-4.6)
[2019-12-02 06:48] LABS: Anion Gap 7.5 mmol/L (6.8-13.8); Calcium * 9.1 mg/dL (7.9-10.9); Carbon Dioxide 33.6 mmol/L (24-32.6)
[2019-12-02] MEDS: HYDROcodone/ACETAMINOPHEN 1 EACH TABLET PO PRN ×2 (07:13→09:47)
[2019-12-02] MEDS: PANTOPRAZOLE SODIUM 40 MG TABLET.EC PO SCH ×2 (07:13→20:34)
[2019-12-02] MEDS ORDERED: NORMAL SALINE 1,000 ML IV ONE (08:37)
[2019-12-02] MEDS ORDERED: POTASSIUM CHLORIDE 20 MEQ TABLET.SA PO ONE (08:40)
--- NOTE | 2019-12-02 08:56 | PN ---
Subjective - Date and Time Seen Date: 12/02/19 Time: 08:44 Subjective Narrative: I feel comfortable for now. Objective Objective Narrative: 74-year-old female status post right sided cephalo-medullary fixation of a intertrochanteric fracture postop day 3 was evaluated at bedside was found to be afebrile and in no acute distress. Patient appears comfortable and denies any pain at the moment. She is currently undergoing in-hospital PT and OT as ordered by the orthopedic surgeon. Hemoglobin has remained stable however her electrolytes have become imbalance once again. After revising the patient's list of medications it was determined that the chlorthalidone due to his strong association with electrolyte imbalance specifically hypokalemia was held. We have also reduced her Lasix and other to avoid worsening of the electrolyte imbalance. In the meantime IV fluid with normal saline and potassium replacement were ordered, we will follow-up with labs in the morning. - Review of Systems Generalized/Overall Review: Reports: No Symptoms Reported EENTM: Reports: No Symptoms Reported Respiratory: Reports: No Symptoms Reported Cardiac: Reports: No Symptoms Reported Abdominal: Reports: No Symptoms Reported Genitourinary Symptoms: Reports: No Symptoms Reported Musculoskeletal Complaints: Reports: No Symptoms Reported Neurological: Reports: No Symptoms Reported Skin: Reports: No Symptoms Reported Endocrine: Reports: No Symptoms Reported - Vitals Vitals: Last Vital Signs Temp 36.8 C 12/02/19 06:40 Pulse 66 12/02/19 06:40 Resp 17 12/02/19 06:40 BP 120/53 12/02/19 06:40 Pulse Ox 96 12/02/19 06:40 - Abnormal Lab Findings Abnormal Lab Findings: Abnormal Lab Results 12/02/19 12/02/19 Range/Units 06:00 06:00 PT 16.0 H (9.1-10.7) Seconds INR (Anticoag Therapy) 1.65 H (0.92-1.08) INR Sodium 126 L (132-142) mmol/L Plasma Sodium 127 L (130-142) mmol/L Potassium 3.1 L (3.4-4.6) mmol/L Chloride 88 L (97-106) mmol/L Carbon Dioxide 33.6 H (24-32.6) mmol/L BUN 24 H (3-23) mg/dL Est GFR (Non-Af Amer) 50 L (60-130) mL/min Random Glucose 142 H (70-110) mg/dL - Exam Constitutional: Present: Alert, Oriented x3, Cooperative, Well developed, Well nourished, No distress, Elderly ENT Exam: Present: normal ENT inspection, pharynx normal, hard of hearing Neck: Present: non-tender, full range of motion, supple, normal inspection, trachea midline Breasts: Present: Exam deferred Respiratory: Present: chest non-tender, lungs clear, normal breath sounds, no respiratory distress, no accessory muscle use Cardiovascular/Chest: Present: normal peripheral pulses, regular rate, rhythm, no chest tenderness, no edema, no gallop, no JVD, no murmur, no rub Abdomen: Present: Normal bowel sounds, soft, nontender, nondistended, no rebound tenderness, no hepatospenomegaly, no masses /Rectal: Present: Exam deferred Extremity: Present: normal inspection, no pedal edema, no calf tenderness, normal capillary refill, pelvis stable, other - Right hip covered by clean dry bandage no signs of infection or bleeding Skin Exam: Present: normal color, warm/dry, no cyanosis Lymphatic: Present: no adenopathy Neurologic: Present: 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, no motor/sensory deficits, alert, normal mood/affect, oriented x 3 Appearance: Present: appropriate appearance, appropriate insight, neat, no memory impairment Eye contact: Present: cooperative, good eye contact, normal speech Thoughts: Present: normal thought pattern, no apparent hallucination Cauti Physician Documentation - Urinary Catheter Management Urethral (Bolanos) Date of Insertion: 11/28/19 Time of Insertion: 00:15 Date of Removal: 11/30/19 Time of Removal: 08:50 Assessment/Plan Plan Narrative: Follow-up labs have been ordered for tomorrow morning to reevaluate electrolytes and hemoglobin levels. Patient was placed on a fluid restriction diet and is being treated with normal saline in order to address the hyponatremia and she will receive potassium replacement for hypokalemia. - Problems/Diagnosis (1) Fall down embankment Problem: Acute (2) Intertrochanteric fracture of right hip Problem: Acute Qualifiers: Encounter type: subsequent encounter Fracture type: closed Fracture alignment: displaced Fracture healing: with routine healing Qualified Code(s): S72.141D - Displaced intertrochanteric fracture of right femur, subsequent encounter for closed fracture with routine healing (3) Hyponatremia Problem: Acute (4) Hypokalemia Problem: Acute (5) Diabetes 1.5, managed as type 2 Problem: Chronic (6) HTN (hypertension) Problem: Chronic (7) Status post-operative repair of hip fracture Problem: Acute
[2019-12-02] MEDS: FUROSEMIDE 40 MG TABLET PO SCH (09:05)
[2019-12-02] MEDS: ROSUVASTATIN CALCIUM 10 MG TABLET PO SCH (09:06)
[2019-12-02] MEDS: FOLIC ACID 1 MG TABLET PO SCH (09:06)
[2019-12-02] MEDS: glipiZIDE 5 MG TABLET PO SCH (09:06)
[2019-12-02] MEDS: METOPROLOL SUCCINATE 50 MG TABLET.SA PO SCH (09:06)
[2019-12-02] MEDS: metFORMIN HCL 750 MG TAB.SR.24H PO SCH (09:06)
[2019-12-02] MEDS: BETHANECHOL 5 MG PO SCH ×3 (09:07→17:00)
[2019-12-02] MEDS: POTASSIUM CHLORIDE 20 MEQ TABLET.SA PO SCH (09:08)
[2019-12-02] MEDS: ENOXAPARIN SODIUM 40 MG/0.4 ML SYRG SC SCH (09:47)
--- NOTE | 2019-12-02 09:48 | PN ---
Subjective - Date and Time Seen Date: 12/02/19 Time: 09:46 Subjective Narrative: Subjective: Reports mild pain. Was able to walk in the room with therapy. Tolerating by mouth intake. Denies any nausea or vomiting. Denies calf pain. Slept well. Physical exam: Alert and oriented to person, place and time Right lower extremity: Palpable dorsalis pedis pulse. Sensation grossly intact to light touch. Dressings clean dry and intact. Able to flex and extend ankle and toes. No excessive drainage. Calf and thigh are soft and nontender. Assessment: Postop day 3 status post right hip cephalo-medullary fixation of intertrochanteric femur fracture. Plan: Continue with physical and occupational therapy weightbearing as tolerated. Continue with anticoagulation-she will need 6 weeks of DVT prophylaxis. Pain control with goal to rely on oral medications. Continue bowel regimen. Will need 6 weeks with walker or assitive device to protect joint while ambulating during the recovery process. Discharge planning -okay for nursing facility when medically sound. Continue PT, ice, rian hose to surgical leg. WBAT ROM as nick, keep wounds covered with dry gauze and tape, change every 3-4 days as needed if soiled or tattered. Follow-up 2-3 weeks with ortho Objective - Vitals Vitals: Last Vital Signs Temp 36.8 C 12/02/19 06:40 Pulse 66 12/02/19 09:06 Resp 17 12/02/19 06:40 BP 120/53 12/02/19 09:06 Pulse Ox 96 12/02/19 06:40 - Abnormal Lab Findings Abnormal Lab Findings: Abnormal Lab Results 12/02/19 12/02/19 Range/Units 06:00 06:00 PT 16.0 H (9.1-10.7) Seconds INR (Anticoag Therapy) 1.65 H (0.92-1.08) INR Sodium 126 L (132-142) mmol/L Plasma Sodium 127 L (130-142) mmol/L Potassium 3.1 L (3.4-4.6) mmol/L Chloride 88 L (97-106) mmol/L Carbon Dioxide 33.6 H (24-32.6) mmol/L BUN 24 H (3-23) mg/dL Est GFR (Non-Af Amer) 50 L (60-130) mL/min Random Glucose 142 H (70-110) mg/dL Cauti Physician Documentation - Urinary Catheter Management Urethral (Bolanos) Date of Insertion: 11/28/19 Time of Insertion: 00:15 Date of Removal: 11/30/19 Time of Removal: 08:50 Assessment/Plan - Problems/Diagnosis (1) Intertrochanteric fracture of right hip Problem: Acute Qualifiers: Encounter type: subsequent encounter Fracture type: closed Fracture alignment: displaced Fracture healing: with routine healing Qualified Code(s): S72.141D - Displaced intertrochanteric fracture of right femur, subsequent encounter for closed fracture with routine healing
[2019-12-02] MEDS: ERGOCALCIFEROL 50000 UNIT TABLET PO SCH (12:13)
[2019-12-02] MEDS: WARFARIN SODIUM 5 MG TABLET PO SCH (16:59)
[2019-12-02] MEDS: SENNOSIDES/DOCUSATE SODIUM 1 TAB TABLET PO SCH (20:35)
[2019-12-03] MEDS: DILTIAZEM HCL 60 MG TABLET PO SCH ×3 (00:38→12:05)
[2019-12-03 06:44] LABS: Prothrombin Time (Patient) 22.8 Seconds (9.1-10.7)
[2019-12-03 06:45] LABS: INR 2.38 INR (0.92-1.08)
[2019-12-03 06:53] LABS: Albumin * 2.8 gm/dl (3.4-5.0); Anion Gap 8.9 mmol/L (6.8-13.8); BUN/Creatinine Ratio 18.8 (9.0-21.6); Bilirubin, Total 2.4 mg/dL (0.0-1.1); Ca. Corrected For Albumin 9.7 mg/dL (8.4-10.2); Calcium * 9.1 mg/dL (7.9-10.9); Carbon Dioxide 33.2 mmol/L (24-32.6); Potassium 3.1 mmol/L (3.4-4.6); Total Protein 6.4 gm/dL (6.2-8.2)
[2019-12-03] MEDS: HYDROcodone/ACETAMINOPHEN 1 EACH TABLET PO PRN (07:27)
[2019-12-03] MEDS: PANTOPRAZOLE SODIUM 40 MG TABLET.EC PO SCH (07:27)
--- NOTE | 2019-12-03 09:05 | DS ---
(1) Fall down embankment Problem: Acute (2) Intertrochanteric fracture of right hip Problem: Acute Qualifiers: Encounter type: subsequent encounter Fracture type: closed Fracture alignment: displaced Fracture healing: with routine healing Qualified Code(s): S72.141D - Displaced intertrochanteric fracture of right femur, subsequent encounter for closed fracture with routine healing (3) Hyponatremia Problem: Resolved (4) Hypokalemia Problem: Acute (5) Diabetes 1.5, managed as type 2 Problem: Chronic (6) HTN (hypertension) Problem: Chronic (7) Status post-operative repair of hip fracture Problem: Acute Date of Discharge:: 12/03/19 Hospital Course: 74-year-old female status post cephalo-medullary fixation of right femoral neck fracture secondary to fall was evaluated at bedside was found to be afebrile and in no acute distress. Patient is healing from her procedure without any major issues and is tolerating in hospital PT and OT well. She has been cleared for discharge to a snf home facility where she will undergo rehab with PT and OT per Ortho recommendation. She will also be placed on anticoagulants for DVT prophylaxis and will be ordered to follow-up with Ortho in several weeks. Patient has been receiving treatment for correction of hyponatremia and hypokalemia and has improved sodium levels but potassium has remained unchanged since yesterday. We will discharge her with follow-up labs and additional doses of p.o. potassium replacements and resume her routine medications. Patient is to follow-up with her PCP in several days. Procedures Performed: see notes below - Cephalo-medullary fixation of right femoral neck fracture. Results and Findings: Lab Pending Results 11/28/19 04:35: WBC 16.3 H, RBC 4.32, Hgb 13.1, Hct 36.7 L, MCV 85.0, MCH 30.3, MCHC 35.7, RDW 12.7, Plt Count 200, MPV 9.4, Immature Gran % (Auto) 0.60 H, Immature Gran # (Auto) 0.09 H, Neutrophils % 84.2 H, Lymphocytes % 8.5 L, Monocytes % 6.3, Eosinophils % 0.2, Basophils % 0.2, Nucleated RBC % 0.0, N eutrophils # 13.8 H, Lymphocytes # 1.39 L, Monocytes # 1.0, Eosinophils # 0.0, Absolute Basophils 0.0 11/28/19 04:35: Sodium 122 L, Plasma Sodium 123 L, Potassium 2.2 L*, Chloride 84 L, Carbon Dioxide 32.4, Anion Gap 7.8, BUN 42 H, Creatinine 1.52 H, Est GFR (Non-Af Amer) 35 L, BUN/Creatinine Ratio 27.6 H, Random Glucose 170 H, Calcium 9.1 11/28/19 15:40: Sodium 127 L, Plasma Sodium 129 L, Potassium 2.7 L D, Chloride 89 L, Carbon Dioxide 33.5 H, Anion Gap 7.2, BUN 35 H, Creatinine 1.27, Est GFR (Non-Af Amer) 43 L D, BUN/Creatinine Ratio 27.6 H, Random Glucose 239 H D, Calcium 8.6, Calcium Adj for Albumin 8.9, Total Bilirubin 2.8 H, AST 19, ALT 17 L, Alkaline Phosphatase 59, Total Protein 6.3, Albumin 3.2 L 11/29/19 06:10: Sodium 130 L, Plasma Sodium 130, Potassium 3.4 D, Chloride 94 L, Carbon Dioxide 30.7, Anion Gap 8.7, BUN 29 H, Creatinine 1.18, Est GFR (Non- Af Amer) 47 L, BUN/Creatinine Ratio 24.6 H, Random Glucose 110 D, Calcium 8.7, Calcium Adj for Albumin 9.1, Total Bilirubin 2.3 H, AST 18, ALT 14 L, Alkaline Phosphatase 54, Total Protein 6.2, Albumin 3.1 L 11/29/19 10:30: SARS-CoV-2 (PCR) Not detected 11/29/19 11:45: PT 10.7, INR (Anticoag Therapy) 1.08 11/30/19 06:41: WBC 13.6 H, RBC 3.66 L, Hgb 11.1 L, Hct 31.8 L, MCV 86.9, MCH 30.3, MCHC 34.9, RDW 12.9, Plt Count 173, MPV 9.7 11/30/19 06:41: Sodium 126 L, Plasma Sodium 128 L, Potassium 2.8 L, Chloride 85 L, Carbon Dioxide 32.3, Anion Gap 11.5, BUN 20, Creatinine 1.12, Est GFR (Non-Af Amer) 50 L, BUN/Creatinine Ratio 17.9, Random Glucose 242 H D, Calcium 8.8 11/30/19 06:41: PT 11.3 H, INR (Anticoag Therapy) 1.15 H 12/01/19 06:30: PT 12.7 H, INR (Anticoag Therapy) 1.30 H 12/01/19 06:30: Sodium 127 L, Plasma Sodium 128 L, Potassium 3.0 L, Chloride 89 L, Carbon Dioxide 34.0 H, Anion Gap 7.0, BUN 17, Creatinine 1.05, Est GFR (Non- Af Amer) 54 L, BUN/Creatinine Ratio 16.2, Random Glucose 157 H D, Calcium 8.9 12/02/19 06:00: PT 16.0 H, INR (Anticoag Therapy) 1.65 H 12/02/19 06:00: Sodium 126 L, Plasma Sodium 127 L, Potassium 3.1 L, Chloride 88 L, Carbon Dioxide 33.6 H, Anion Gap 7.5, BUN 24 H, Creatinine 1.12, Est GFR (Non-Af Amer) 50 L, BUN/Creatinine Ratio 21.4, Random Glucose 142 H, Calcium 9.1 12/03/19 06:31: PT 22.8 H, INR (Anticoag Therapy) 2.38 H 12/03/19 06:31: Sodium 131 L, Plasma Sodium 132, Potassium 3.1 L, Chloride 92 L, Carbon Dioxide 33.2 H, Anion Gap 8.9, BUN 19, Creatinine 1.01, Est GFR (Non-Af Amer) 57 L, BUN/Creatinine Ratio 18.8, Random Glucose 180 H, Calcium 9.1, Calcium Adj for Albumin 9.7, Total Bilirubin 2.4 H, AST 23, ALT 21, Alkaline Phosphatase 58, Total Protein 6.4, Albumin 2.8 L Discharge Location: [facility] Disposition: SNF Condition: Good Face to Face Encounter completed per CMS Guidelines: No Level of Care: SNF Discharge Activity: Weight bearing Discharge Diet: Consistent carbs Care Home Therapy: Physical Therapy, Occupation Therapy Additional Patient Instructions (free text): Plans for Discharge to [facility] in [facility]. Please call and fax discharge information. PT and OT to evaluate and treat. Follow up Orthopedic Office appointment with Dr Larson on MondayDecember 16 at 9:45am. Ortho instructions: Plan: Continue with physical and occupational therapy weightbearing as tolerated. Continue with anticoagulation-she will need 6 weeks of DVT prophylaxis until January 09. Continue bowel regimen. Will need 6 weeks with walker or assitive device to protect joint while ambulating during the recovery process. Ice, Jose G hose to surgical leg. Keep wounds covered with dry gauze and tape, change every 3-4 days as needed if soiled or tattered. Prescriptions (Any new or edited meds): Warfarin Sodium [Coumadin] 5 mg PO DAILY@1700 #45 tab Transmission Status: Pending to [facility] Furosemide [Lasix] 40 mg PO DAILY #30 tab Transmission Status: Pending to [facility] HYDROcodone/ACETAMINOPHEN [[place] 5-325] 1 ea PO Q6H PRN 5 Days #30 tab PRN Reason: Moderate Pain (Pain Scale 4-6) Transmission Status: Received by [facility] Complete Home Medications List: Complete Home Medication List: Bethanechol Chloride 5 mg PO TID 11/28/19 Diltiazem HCl [Cardizem] 60 mg PO Q6H 11/28/19 Ergocalciferol (Vitamin D2) [Vitamin D2] 50,000 unit PO MOWEFR 11/28/19 Folic Acid 1 mg PO DAILY 11/28/19 Lisinopril/Hydrochlorothiazide [Lisinopril-Hctz 20-25 mg Tab] 1 ea PO DAILY 11/28/19 Meloxicam [Mobic] 15 mg PO DAILY 11/28/19 Metoprolol Succinate [Toprol Xl] 50 mg PO DAILY 11/28/19 Potassium Chloride [Klor-Con] 20 meq PO DAILY 11/28/19 Rosuvastatin Calcium 10 mg PO DAILY 11/28/19 glipiZIDE [Glipizide] 5 mg PO DAILY 11/28/19 metFORMIN HCL [Glucophage Xr] 750 mg PO DAILY 11/28/19 Furosemide [Lasix] 40 mg PO DAILY #30 tab 12/03/19 HYDROcodone/ACETAMINOPHEN [[place] 5-325] 1 ea PO Q6H PRN 5 Days #30 tab 12/03/19 Warfarin Sodium [Coumadin] 5 mg PO DAILY@1700 #45 tab 12/03/19 Forms: Patient Portal Registration
[2019-12-03] MEDS: FUROSEMIDE 40 MG TABLET PO SCH (10:12)
[2019-12-03] MEDS: POTASSIUM CHLORIDE 20 MEQ TABLET.SA PO SCH (10:12)
[2019-12-03] MEDS: ENOXAPARIN SODIUM 40 MG/0.4 ML SYRG SC SCH (10:13)
[2019-12-03] MEDS: glipiZIDE 5 MG TABLET PO SCH (10:13)
[2019-12-03] MEDS: ROSUVASTATIN CALCIUM 10 MG TABLET PO SCH (10:13)
[2019-12-03] MEDS: metFORMIN HCL 750 MG TAB.SR.24H PO SCH (10:13)
[2019-12-03] MEDS: FOLIC ACID 1 MG TABLET PO SCH (10:13)
[2019-12-03] MEDS: METOPROLOL SUCCINATE 50 MG TABLET.SA PO SCH (10:14)
[2019-12-03] MEDS: BETHANECHOL 5 MG PO SCH ×2 (10:14→12:05)
[2019-12-03 11:23] VITALS: BP 102/58
== END 2019-12-03 11:50 | DRG 481 ==
LOC: EDBD → ER 04:15 → MS 05:57
PROVIDERS: ADMIT Family Medicine; ATTEND Family Medicine
DX: E11.9 Type 2 diabetes mellitus without complications; I10 Essential (primary) hypertension; E87.1 Hypo-osmolality and hyponatremia; E87.6 Hypokalemia; W01.0XXA Fall on same level from slipping, tripping and stumbling without subsequent striking against object, initial encounter; I48.91 Unspecified atrial fibrillation; S72.141A Displaced intertrochanteric fracture of right femur, initial encounter for closed fracture
CPT/HCPCS: 36415; 73502; 80048; 80053; 85025; 85027; 85610; 93005; 97110; 97162; 97165; 97530; 99284; 99285; J2405; U0001